=== PATIENT | male | born 1950 | race Caucasian/White ===

== ENCOUNTER 2018-05-31 13:37 | Day surgery (SDC) | payer MEDICARE, BC ==
[~2018-05-31] VITALS: Ht 180.3 cm; Wt 123.1 kg
[~2018-05-31 13:37] MED LIST: ALBU90OI INH; ALLER-TEC PO; BENAZEPRIL PO; CETIRIZINE HCL PO; CIPR500 PO; DOCSEN PO; GLUC500 PO; HYDR1TAB94 PO; HYDROCHLOROTHIAZIDE PO; LEVSOD50 PO; LOSHYD100 PO; MULTI VITAMIN1 EACH PO; OPTIFLEX-C400 MG PO; PRAV20 PO; STOOL SOFTENER50 MG PO; TRAM50 PO
[2018-05-31] MEDS ORDERED: ALLI60 MG (15:24)
--- NOTE | 2018-05-31 16:24 | NUR ---
05/31/18 3524 Lanny Tran RN MET WITH PT AND EXPLAINED THE PROCEDURE UNTIL ALL QUESTIONS WERE ANSWERED. LUNG SOUNDS ARE CLEAR AND REGULAR BILATERALLY PER AUSCULATION. PT DENIES PAIN AT THIS TIME. PT DENIED THE NEED TO USE THE RESTROOM AT THIS TIME AND/OR WARM BLANKETS. CALL LIGHT IN REACH.
== END 2018-05-31 17:32 | disposition home or self-care (01) ==
LOC: ORSCSDS 13:37
PROVIDERS: Surgery
PROC: 0DBK8ZX Excision of Ascending Colon, Via Natural or Artificial Opening Endoscopic, Diagnostic (ICD-10-PCS; principal; 2018-05-31 15:00)
PROC: 0DBL8ZX Excision of Transverse Colon, Via Natural or Artificial Opening Endoscopic, Diagnostic (ICD-10-PCS; principal; 2018-05-31 15:00)
DX: Z12.11 Encounter for screening for malignant neoplasm of colon (principal); D12.2 Benign neoplasm of ascending colon; D12.3 Benign neoplasm of transverse colon; J45.909 Unspecified asthma, uncomplicated; I10 Essential (primary) hypertension; E78.5 Hyperlipidemia, unspecified; Z87.891 Personal history of nicotine dependence; Z79.899 Other long term (current) drug therapy
CPT/HCPCS: 88305; J7120

== ENCOUNTER → 2020-12-31 | Outpatient (CLI) | payer MEDICARE, BC ==
[~2020-12-31] MED LIST changes: +ALLI60 MG
[2020-12-31 10:18] LABS: BASOPHILS ABSOLUTE AUTO 0.05 K/mm3 (0.00-0.23); BASOPHILS PERCENT AUTO 1 % (0-2); EOSINOPHILS ABSOLUTE AUTO 0.17 K/mm3 (0.00-0.68); EOSINOPHILS PERCENT AUTO 3 % (0-6); Hematocrit 42.8 % (37.0-53.0); Hemoglobin 14.7 g/dL (13.5-17.5); IMMATURE GRAN ABSOLUTE AUTO 0.01 K/mm3 (0.00-0.10); IMMATURE GRAN PERCENT AUTO 0 % (0-1); LYMPHOCYTES ABSOLUTE AUTO 1.33 K/mm3 (0.84-5.20); LYMPHOCYTES PERCENT AUTO 23 % (21-46); MONOCYTES PERCENT AUTO 9 % (4-13); Mean Corpuscular HGB 29.6 pg (26.0-34.0); Mean Corpuscular HGB Conc 34.3 g/dL (31.5-36.5); Mean Corpuscular Volume 86 fL (80-100); Mean Platelet Volume 8.7 fL (9.1-12.4); NEUTROPHILS ABSOLUTE AUTO 3.62 K/mm3 (1.96-9.15); NEUTROPHILS PERCENT AUTO 64 % (41-73); Platelet Count 237 K/mm3 (150-400); RDW Coefficient Variation 12.6 % (11.7-14.2); RDW Standard Deviation 39.2 fL (35.1-46.3); Red Blood Cell Count 4.97 M/mm3 (4.30-5.90); White Blood Cell Count 5.68 K/mm3 (4.00-11.30)
[2020-12-31 11:25] LABS: Alanine Aminotransfer (ALT/SGP 25 U/L (12-78); Albumin, Blood 4.2 g/dL (3.4-5.0); Albumin/Globulin Ratio 1.3 (0.8-1.8); Alk Phos 102 U/L (50-136); Anion Gap 2 mmol/L (6-16); Aspartate Aminotrans (AST/SGOT 19 U/L (12-37); Bilirubin, Total 1.6 mg/dL (0.1-1.0); Blood Urea Nitrogen 23 mg/dL (8-24); Bun/Creatinine Ratio 22.5 (12.0-20.0); CO2, Blood 28 mmol/L (21-32); Calcium, Blood 9.2 mg/dL (8.5-10.1); Chloride, Blood 107 mmol/L (98-108); Creatinine, Blood 1.02 mg/dL (0.60-1.20); Globulin, Blood 3.2 g/dL (2.2-4.0); Glomerular Filtration Rate >60 (60-); Glucose, Blood 99 mg/dL (70-99); Potassium, Blood 4.7 mmol/L (3.5-5.5); Sodium, Blood 137 mmol/L (136-145); Total Protein, Blood 7.4 g/dL (6.4-8.2)
== END | disposition home or self-care (01) ==
LOC: LAB 10:14 → LAB SHORT 10:14
PROVIDERS: Physician Assistant
DX: R31.9 Hematuria, unspecified (principal)
CPT/HCPCS: 80053; 85025

== ENCOUNTER 2024-09-01 07:58 | Day surgery (SDC) | payer MEDICARE, BC ==
[~2024-09-01] VITALS: Ht 180.3 cm; Wt 119.0 kg
[~2024-09-01 07:58] MED LIST changes: +AMLO5 PO; +IRBESARTAN-HCT1 EAC3 PO; +Lactated Ringer's 1,000 ML IV SCH; +MELO7.5 PO
[2024-09-01 08:26] VITALS: BP 148/73
[2024-09-01] MEDS ORDERED: propofoL 20 ML IV ONE (08:41)
--- NOTE | 2024-09-01 08:41 | NUR ---
PATIENT REPORTS TAKING ALL OF COLON PREP WITH CLEAR LIGHT YELLOW RESULTS. History, Chart, Medications and Allergies reviewed before start of procedure. Patient confirms NPO status and agrees with scheduled surgery. Ride home arranged with Tiffany, who is at bedside with patient.
--- NOTE | 2024-09-01 08:42 | NUR ---
09/01/24 0842 Argelia Nolasco CONFIRMED AND REVIEWED H&P, MEDCICATIONS, ALLERGIES, MEDICAL HISTORY, RESPIRATORY HISTORY, VITAL SIGNS, 3-LEAD EKG, CONSENTS, AND PHYSICIAN ORDERS. PATIENT CONFIRMS NPO STATUS AND AGREES WITH SCHEDULED PROCEDURE. MONITOR INTACT WITH CONTINUOUS PULSE OXIMETRY, CAPNOGRAPHY, 3-LEAD EKG, INTERMITTENT BP. SUPPLEMENTAL O2 TO BE TITRATED THROUGHOUT PROCEDURE TO MAINTAIN O2 SATURATION ABOVE 90%. PATIENT DETERMINED TO BE ASA APPROPRIATE FOR PROPOFOL SEDATION PRIOR TO START OF PROCEDURE BY DR. MCKEON
[2024-09-01 09:15] VITALS: BP 131/83
--- NOTE | 2024-09-01 09:31 | NUR ---
TO STEP POST COLONOSCOPY. NO SPECIMENS, FOLLOW UP 5 YEARS. DENIES PAIN, NAUSEA, SOB. DC'D IV INTACT. JESSE PO WELL. DC'D VIA WC TO PRIVATE CAR WITH RESIDENTIAL ASSISTANT.
[2024-09-01 09:32] VITALS: BP 148/68
== END 2024-09-01 09:35 | disposition home or self-care (01) ==
LOC: ORSCMMR 07:58 → ORD 09:00 → ORSCMMR 09:35
PROVIDERS: Internal Medicine Gastroenterology
PROC: 0DJD8ZZ Inspection of Lower Intestinal Tract, Via Natural or Artificial Opening Endoscopic (ICD-10-PCS; principal; 2024-09-01 09:00)
DX: Z12.11 Encounter for screening for malignant neoplasm of colon (principal); Z86.0101 Personal history of adenomatous and serrated colon polyps; K57.30 Diverticulosis of large intestine without perforation or abscess without bleeding; I10 Essential (primary) hypertension; E03.9 Hypothyroidism, unspecified; E78.00 Pure hypercholesterolemia, unspecified; E66.9 Obesity, unspecified; Z68.39 Body mass index [BMI] 39.0-39.9, adult; Z87.891 Personal history of nicotine dependence; Z79.899 Other long term (current) drug therapy
CPT/HCPCS: J2704; J7120